=== PATIENT | female | born 2000 | race Native Hawaiian/Other Pacific Islander ===

== ENCOUNTER 2023-05-04 05:27 | Emergency (ER) | payer BC ==
[~2023-05-04] VITALS: Ht 170.2 cm; Wt 88.6 kg
[~2023-05-04 05:27] MED LIST: CEFTIN500 MG PO; CONCERTA27 MG
[2023-05-04] MEDS ORDERED: BACTRIM DS 8001 TAB PO (05:47)
[2023-05-04 05:49] LABS: COLLECTION METHOD CLEAN CATCH
[2023-05-04 06:01] LABS: PH 5.5 (5.0-8.5); URINE APPEARANCE Cloudy (CLEAR/HAZY); URINE BLOOD 2+ (NEGATIVE); URINE COLOR OTHER (YELLOW)
[2023-05-04 06:02] LABS: URINE BACTERIA Occasional /hpf (NONE SEEN)
[2023-05-04 06:17] VITALS: BP 138/68; PULSE 93; TEMP 98
== END 2023-05-04 06:14 | disposition home or self-care (01) ==
LOC: COL.ER 05:27
PROVIDERS: Emergency Medicine
DX: N39.0 Urinary tract infection, site not specified (principal); F17.210 Nicotine dependence, cigarettes, uncomplicated; Z88.0 Allergy status to penicillin

== ENCOUNTER 2024-04-05 21:35 | Emergency (ER) | payer SELFPAY ==
[~2024-04-05] VITALS: Ht 170.2 cm; Wt 97.7 kg
[~2024-04-05 21:35] MED LIST changes: +BACTRIM DS 8001 TAB PO
[2024-04-05 21:41] VITALS: BP 146/87; TEMP 97.2
[2024-04-05] MEDS ORDERED: Promethazine 25 MG TAB PO ONE (22:00)
[2024-04-05 22:30] LABS: COLLECTION METHOD CLEAN CATCH
[2024-04-05 22:43] LABS: PH 7.5 (5.0-8.5); URINE APPEARANCE CLEAR (CLEAR/HAZY); URINE BLOOD NEGATIVE (NEGATIVE); URINE COLOR YELLOW (YELLOW); URINE GLUCOSE NEGATIVE (NEGATIVE); URINE KETONE NEGATIVE (NEGATIVE); URINE NITRATE NEGATIVE (NEGATIVE); URINE PROTEIN(semi-quant) NEGATIVE (NEGATIVE)
[2024-04-05] MEDS ORDERED: PHENERGAN 25 TA25 MG PO (23:20)
[2024-04-05 23:30] VITALS: PULSE 92
== END 2024-04-05 23:30 | disposition home or self-care (01) ==
LOC: COL.ER 21:35
PROVIDERS: Emergency Medicine
DX: O26.899 Other specified pregnancy related conditions, unspecified trimester (principal); R10.9 Unspecified abdominal pain; R11.0 Nausea; Z3A.00 Weeks of gestation of pregnancy not specified